=== PATIENT | male | born 1945 | race Asian ===

== ENCOUNTER 2017-11-12 13:48 | Outpatient (CLI) | payer MEDICARE, OTHER | END 2017-11-12 13:49 | disposition short-term general hospital (02) | LOC: EMS 13:48 | PROVIDERS: ATTEND Surgery | DX: R19.5 Other fecal abnormalities (principal); R53.1 Weakness; W18.39XA Other fall on same level, initial encounter; Y92.009 Unspecified place in unspecified non-institutional (private) residence as the place of occurrence of the external cause | CPT/HCPCS: A0425; A0427; A0888 ==

== ENCOUNTER 2018-02-01 17:32 | Outpatient (CLI) | payer MEDICARE, OTHER ==
--- NOTE | 2018-02-01 18:20 | XRAY Report ---
Procedure Date: 02/01/2018 Accession Number: [id number] / [id number] Procedure: XR - Chest 2 View X-Ray CPT Code: 56529 FULL RESULT: EXAM: CHEST RADIOGRAPHY EXAM DATE: 02/01/2018 06:01 PM. CLINICAL HISTORY: Persistent shortness of breath for 2 weeks with sputum production. COMPARISON: None. TECHNIQUE: 2 views. FINDINGS: Lungs/Pleura: Perihilar right lower lobe opacity, otherwise no focal opacities evident. No pleural effusion. No pneumothorax. Normal volumes. Mediastinum: Large heart. Other: No compression fractures. IMPRESSION: 1. Perihilar right lower lobe infiltrate. 2. Cardiomegaly. [facility] The call report notification system was initiated by Dr. Darryl Carty at 18:18 hrs on 02/01/18. The above findings were discussed with Dr Desi Dr by Dr. Darryl Carty at 18:19 hrs on 02/01/18.
== END 2018-02-01 17:33 | disposition home or self-care (01) ==
LOC: DI 17:32
PROVIDERS: ATTEND Family Medicine
DX: R06.02 Shortness of breath (principal); R91.8 Other nonspecific abnormal finding of lung field
CPT/HCPCS: 71046